=== PATIENT | male | born 1995 | race Caucasian/White ===

== ENCOUNTER 2023-09-30 20:42 | Inpatient (IN) | payer OTHER ==
[~2023-09-30] VITALS: Ht 177.8 cm; Wt 65.4 kg
[~2023-09-30 20:42] MED LIST: CEFTIN 250250 MG/TAB PO; FLOMAX 0.40.4 MG/CAP PO; NO HOME MEDICATIONS; PERCOCET 325 MG1 TA2 PO
[2023-09-30] MEDS ORDERED: LORazepam 2 MG/ML 1 ML VIAL IV ONE ×2 (21:00→21:30)
[2023-09-30 21:05] LABS: BASO % 0.2 % (0.0-2.0); EOS % 0.1 % (0.0-4.0); GRAN # 19.8 K/mm3 (1.4-6.5); GRAN % 89.5 % (42.2-75.2); HEMATOCRIT 45.9 % (42.0-52.0); HEMOGLOBIN 15.8 g/dl (13.5-18.0); LYMPH # 0.8 K/mm3 (1.2-3.4); LYMPH % 3.4 % (20.0-51.0); MEAN CELL VOLUME 91 fl (80.0-100.0); MEAN CORPUSCULAR HEMOGLOBIN 32 pg (27-31); MEAN CORPUSCULAR HGB CONC 34 g/dl (33.0-37.0); MEAN PLATELET VOLUME 8.6 fl (7.4-10.4); MONO # 1.4 K/mm3 (0.1-0.6); MONO % 6.3 % (1.7-9.3); PLATELET COUNT 286 K/mm3 (130-400); RED BLOOD COUNT 5.02 M/mm3 (4.20-5.60); REDCELL DISTRIBUTION WIDTH-CV 12.5 % (11.5-14.5)
[2023-09-30] MEDS ORDERED: NS 1,000 ML IV ONE ×2 (21:28→22:30)
[2023-09-30 21:30] LABS: ALANINE AMINOTRANSFERASE 69 U/L (0-55); ALBUMIN 4.8 g/dL (3.5-5.0); ALCOHOL(ethanol),MEDICAL < 10 mg/dL (0-10); ALKALINE PHOSPHATASE 85 U/L (40-150); ANION GAP 19 mmol/L (7-16); AST,SGOT 54 U/L (5-34); BILIRUBIN,TOTAL 0.6 mg/dL (0.2-1.2); BLOOD UREA NITROGEN 29 mg/dL (9-21); CALCIUM 10.1 mg/dL (8.4-10.2); CHLORIDE 106 mEq/L (98-107); GLUCOSE 105 mg/dL (70-99); POTASSIUM 4.8 mEq/L (3.5-4.5); SODIUM 143 mEq/L (136-145); TOTAL PROTEIN 8.3 g/dl (6.2-8.1)
[2023-09-30 21:57] LABS: TROPONIN-I < 0.010 ng/mL (0.00-0.033)
[2023-09-30 22:18] LABS: COLLECTION METHOD CLEAN CATCH
[2023-09-30 22:28] LABS: URINE APPEARANCE TURBID (CLEAR/HAZY); URINE BLOOD 2+ (NEGATIVE); URINE COLOR YELLOW (YELLOW); URINE GLUCOSE NEGATIVE (NEGATIVE); URINE KETONE 1+ (NEGATIVE); URINE NITRATE NEGATIVE (NEGATIVE); URINE PROTEIN(semi-quant) 2+ (NEGATIVE); URINE UROBILINOGEN 0.2 E.U/dL (0.2-1.0)
[2023-09-30 22:34] LABS: TRICYCLIC ANTIDEPRESS URINE NEGATIVE (NEGATIVE)
[2023-09-30 23:00] LABS: MUCOUS PRESENT (NOT PRESENT); SQUAMOUS EPITHELIAL 0-2 /hpf (0-10); URINE BACTERIA NONE SEEN /hpf (NONE SEEN); URINE RBC 0-2 /hpf (0-2); URINE WBC 0-2 /hpf (0-2)
[2023-09-30] MEDS ORDERED: Ketamine 50 MG/5 ML SYRINGE IV ONE (23:15)
[2023-10-01] VITALS (683 sets, daily range): BP systolic 95–122; BP diastolic 59–76; PULSE 64–84; TEMP 97.7–99.1; O2SAT 84–100
[2023-10-01] MEDS ORDERED: Ketamine 50 MG/5 ML SYRINGE IV ONE (00:04)
[2023-10-01] MEDS ORDERED: cefTRIAXone 2 G in Water For Injection,Sterile 20 ML IV SCH (00:30)
[2023-10-01 00:51] LABS: GLUCOSE,CSF 76 mg/dL (40-70); TOTAL PROTEIN,CSF 38 mg/dL (15-45)
[2023-10-01] MEDS ORDERED: Vancomycin 1.5 GM,Special Dose/Pharmacy Prepared 1.5 GM in NS 250 ML IV ONE (01:00)
[2023-10-01] MEDS ORDERED: ACYCLOVIR IV SCH (02:00)
[2023-10-01] MEDS ORDERED: NS IV SCH (02:00)
[2023-10-01] MEDS ORDERED: Acetaminophen 500 MG TAB PO PRN (02:15)
[2023-10-01] MEDS ORDERED: Ondansetron 4 MG/2 ML VIAL IV PRN (02:15)
[2023-10-01 02:25] LABS: CSF APPEARANCE CLEAR; CSF COLOR COLORLESS; CSF POLYMORPHONUCLEAR 100 % (0-6); CSF RBC 30 /mm3 (0-0)
[2023-10-01 02:26] LABS: CSF MONONUCLEAR 0 % (70-100)
--- NOTE | 2023-10-01 02:52 | NUR ---
Vancomycin Initial Dosing Pharmacy Note Ordering provider: Miguelina Beyer R., MD Indication/duration: Possible meningitis x 3 days Relevant comorbidities: None LABS: WBC = 22.2 Recommendation: If vanco continued past 3 days, will draw trough and follow level. Loading dose: 1.5 grams Maintenance dose: 1.25 grams every 24 hours Trough goal: 20-25 ug/mL
--- NOTE | 2023-10-01 03:15 | NUR ---
Received report from RITU Vizcaino at 0055. Pt arrived on the unit at 0145. Pt was able to wake up for a short peroid of time to move himself from the ED bed to the other bed. Pt oriented based off three questions that he answered, pt got his name, and town correctly, but also seems to have some altered mental status that appears throughout. He does not remember what happened today and does not know why he is here. Pt stopped answering questions after that. Pt was able to follow some commands, but then there are times when he will not follow commands. Pt falls asleep pretty fast. Pt's vitals were stable upon arrival. Pt's belongings are just his clothes. Pt is currently resting in bed with bed alarms on. Will continue with pt care.
[2023-10-01] MEDS ORDERED: NS 1,000 ML IV SCH (05:15)
--- NOTE | 2023-10-01 06:32 | NUR ---
Pt slept most of the night upon arriving on the unit. Pt started to wake up more around 0545. Pt was alert and oriented x4 and able to answer questions and follow commands. Was able to go to CT for ABD and pelvis around 0600. Pt is now on IVF and resting in bed with call light within reach and bed alarms on. Will give report to day shift nurse.
--- NOTE | 2023-10-01 08:30 | NUR ---
Patient slightly sleepy, but awakens easily and answers orientation questions appropriately. Mom at bedside with patient. Call light left within reach. Will continue to monitor.
--- NOTE | 2023-10-01 10:06 | NUR ---
hall worker called patient's room phone due to being in droplet isolation. Pt's mother, Jo Ann [phone] answered phone to discuss. Jo Ann reports pt lives with her in [place]. Pt does not have a PCP she states because he "just doesn't get sick." SW advised if she would like a PCP list as there is usually a follow up needed after a hospital stay. Mother states she will call [facility], where she is seen to get patient in. Mother states pt does not have any medications, but would obtain them from [facility] with difficulties. She reports his [facility] insurance does not cover prescriptions. SW advised talking with a PCP in the future for coupons/samples and downloading the [facility] cassie to match prices and lower the cost. Jo Ann reports she is familiar with this and will help do this. Pt is independent with ADLS and uses no DME. He does not have a DPOA-HC. Discharge Plan; home
[2023-10-01 11:16] LABS: HEMATOCRIT 37.4 % (42.0-52.0); MEAN CELL VOLUME 92 fl (80.0-100.0); MEAN CORPUSCULAR HEMOGLOBIN 32 pg (27-31); MEAN CORPUSCULAR HGB CONC 35 g/dl (33.0-37.0); PLATELET COUNT 214 K/mm3 (130-400); RED BLOOD COUNT 4.07 M/mm3 (4.20-5.60); REDCELL DISTRIBUTION WIDTH-CV 12.5 % (11.5-14.5)
[2023-10-01 11:21] LABS: HEMOGLOBIN 13.2 g/dl (13.5-18.0)
[2023-10-01 11:31] LABS: CALCIUM 8.3 mg/dL (8.4-10.2); CREATININE, serum 2.79 mg/dL (0.72-1.25); POTASSIUM 3.9 mEq/L (3.5-4.5)
[2023-10-01 11:47] LABS: BAND 5 % (0-10); LYMPHOCYTE 16 % (20.0-51.0); NEUTROPHILS 74 % (42.0-75.2); PLATELET ESTIMATE NORMAL (NORMAL)
--- NOTE | 2023-10-01 11:50 | NUR ---
Blood glucose on labs 64. Patient alert and oriented. Patient received and ate lunch shortly after receiving lab results.
--- NOTE | 2023-10-01 16:02 | NUR ---
Reported latest labs to hospitalist. Will consult nephrology and obtain CK lab.
[2023-10-01] MEDS ORDERED: Vancomycin 1.25 GM,Special Dose/Pharmacy Prepared 1.25 GM in NS 250 ML IV SCH (17:00)
--- NOTE | 2023-10-01 17:20 | NUR ---
PT UP TO FLOOR AT THIS TIME A/O X4, STEADY GAIT, AND VITALS STABLE. PT TOLERATING DEIT WELL, NO SKIN INSSUES, COMPLAINING OF GENERAL SORNESS IN ALL EXTREMITIS. NO NEEDS AT THIS TIME. FAMILY AT BEDSIDE, WILL CONTINUE TO MONITOR.
--- NOTE | 2023-10-01 22:45 | NUR ---
patient lying in bed, alert and oriented x4. denies chest pain, reports shortness of breath only with exertion. IV in LAC is patent, site is clean dry and intact with NS running at 100 ml/hr, dressing changed at 2200. left lower back bandaid clean dry and intact, small scattered bruising on extremities noted. pt has no further needs, questions, or concerns at this time. fall precautions in place, call light within reach. will continue to monitor.
[2023-10-02] VITALS (20 sets, daily range): BP systolic 106–140; BP diastolic 60–93; PULSE 56–73; TEMP 98–98.9
[2023-10-02 07:16] LABS: BASO % 0.5 % (0.0-2.0); EOS % 0.2 % (0.0-4.0); GRAN % 67.8 % (42.2-75.2); HEMOGLOBIN 12.6 g/dl (13.5-18.0); LYMPH # 1.7 K/mm3 (1.2-3.4); LYMPH % 19.2 % (20.0-51.0); MEAN CELL VOLUME 92 fl (80.0-100.0); MEAN CORPUSCULAR HEMOGLOBIN 32 pg (27-31); MEAN CORPUSCULAR HGB CONC 34 g/dl (33.0-37.0); MEAN PLATELET VOLUME 9.3 fl (7.4-10.4); MONO # 1.1 K/mm3 (0.1-0.6); MONO % 12.1 % (1.7-9.3); PLATELET COUNT 195 K/mm3 (130-400); RED BLOOD COUNT 3.99 M/mm3 (4.20-5.60); REDCELL DISTRIBUTION WIDTH-CV 12.3 % (11.5-14.5)
[2023-10-02 07:17] LABS: HEMATOCRIT 36.6 % (42.0-52.0)
[2023-10-02 07:32] LABS: CALCIUM 8.4 mg/dL (8.4-10.2); CREATININE, serum 2.17 mg/dL (0.72-1.25); POTASSIUM 3.6 mEq/L (3.5-4.5)
[2023-10-02] MEDS ORDERED: 1/2 NS 1,000 ML IV SCH (09:15)
[2023-10-02 10:07] LABS: INR 1.1 (0.8-3.0); PROTHROMBIN TIME 11.5 SECONDS (9.7-12.8)
[2023-10-02] MEDS ORDERED: Lidocaine PF 2% (20 MG/ML) 5 ML VIAL ONE (10:29)
[2023-10-02 10:39] LABS: CREATININE, serum 2.07 mg/dL (0.72-1.25); POTASSIUM 3.9 mEq/L (3.5-4.5)
--- NOTE | 2023-10-02 11:25 | NUR ---
Pt back to [facility] - bedside handoff performed with RITU Oleary - pt AOx4, vitals initiated and stable - call light in reach. Pt denies questions or concerns
--- NOTE | 2023-10-02 11:27 | NUR ---
Patient alert and oriented x4, shift assessment complete this morning. Patient denies pain. Maintained NPO status for ALESSIA and MRI of brain. Returned to floor from ALESSIA 1125, VSS. Stable on room air, tolerating sips of water. Patient resting in bed with call light in reach, all needs met at this time.
--- NOTE | 2023-10-02 13:59 | NUR ---
Initial visit; Sherman, a nice young man with a great smile talked with Research & Analytics Manager and was receptive to having Research & Analytics Manager keep him in her prayers. His mom was also present and very nice as well. Research & Analytics Manager offered them "God's blessings."
--- NOTE | 2023-10-02 17:46 | NUR ---
Patient remains stable. Called to complain of IV leaking to left AC. IV discontinued. This nurse tried x2 to left forearm/AC with no success. RITU Ba attempted x2 with no success. shift supervisor got a patent IV site after third attempt to right forearm. IV antibiotic infusing per orders at this time. Patient's mom at bedside. Call light within reach, all needs met at this time.
--- NOTE | 2023-10-02 20:26 | NUR ---
PATIENT SITTING UP IN BED TALKING ON CELLPHONE. ALERT AND ORIENTED. SHIFT ASSESSMENT COMPLETE. NS INFUSING PER MAR. TELEMETRY ON. PATIENT STATES PAIN IS GENERALIZED MUSCLE PAIN. DENIES PAIN MEDICATION. DENIES NEEDS OR CONCERNS AT THIS TIME. CALL LIGHT WITHIN REACH. WILL MONITOR
[2023-10-03] VITALS (9 sets, daily range): BP systolic 129–153; BP diastolic 83–99; PULSE 50–61; TEMP 97.5–99.3
--- NOTE | 2023-10-03 02:49 | NUR ---
PATIENT RESTING WITH EYES CLOSED UPON ARRIVAL OF THIS NURSE. THIS NURSE ADMINISTERED ACYCLOVIR IV PER JUL. PATIENT DENIES PAIN OR NEEDS AT THIS TIME.
[2023-10-03 08:02] LABS: BASO % 0.5 % (0.0-2.0); EOS # 0.1 K/mm3 (0.0-0.7); EOS % 0.6 % (0.0-4.0); GRAN # 5.6 K/mm3 (1.4-6.5); GRAN % 68.4 % (42.2-75.2); HEMATOCRIT 37.8 % (42.0-52.0); HEMOGLOBIN 12.9 g/dl (13.5-18.0); LYMPH # 1.4 K/mm3 (1.2-3.4); LYMPH % 17.7 % (20.0-51.0); MEAN CELL VOLUME 92 fl (80.0-100.0); MEAN CORPUSCULAR HEMOGLOBIN 31 pg (27-31); MEAN CORPUSCULAR HGB CONC 34 g/dl (33.0-37.0); MEAN PLATELET VOLUME 9.3 fl (7.4-10.4); MONO % 12.4 % (1.7-9.3); PLATELET COUNT 182 K/mm3 (130-400); RED BLOOD COUNT 4.13 M/mm3 (4.20-5.60)
[2023-10-03 08:12] LABS: CALCIUM 8.6 mg/dL (8.4-10.2); CREATININE, serum 1.46 mg/dL (0.72-1.25); POTASSIUM 3.6 mEq/L (3.5-4.5)
--- NOTE | 2023-10-03 09:55 | NUR ---
PATIENT ALERT AND ORIENTED TO SELF AND PLACE BUT UNABLE TO TELL ME DATE. PATIENT DENIES PAIN AT THIS TIME. FLUIDS RUNNING PER EMAR. PATIENT REPORTS HAVING DIFFICULTY REMEMBERING THINGS BEFORE AND AFTER SEIZURE. MOTHER AT BEDSIDE. PATIENT MOTHER CONCERN ABOUT PATIENT MEMORY LOSS. PATIENT LAYING IN BED RESTING REPORTS FEELING BETTER BUT STILL WEAK.CALL LIGHT WITHIN REACH. BED AT LOWEST POSITION.
[2023-10-03 13:12] LABS: HSV 2 DNA PCR QUAL Negative (Negative)
--- NOTE | 2023-10-03 16:25 | NUR ---
PATIENT DISCHARGE INSTRUCTIONS GIVEN. PATIENT DENIED ANY QUESTIONS. IV AND TELE REMOVED. PATIENT ESCORTED OUT OF HOSPITAL BY THIS NURSE.
== END 2023-10-03 16:30 | disposition home or self-care (01) | DRG 100 ==
LOC: COL.ER 20:42 → MEDICAL 10-01 00:05 → ICU 10-01 00:05 → MEDICAL 10-01 17:19
PROVIDERS: Emergency Medicine; Internal Medicine; Nurse Practitioner Primary Care; ADMIT Internal Medicine
PROC: 009U3ZX Drainage of Spinal Canal, Percutaneous Approach, Diagnostic (ICD-10-PCS; principal; 2023-10-01)
DX: G40.909 Epilepsy, unspecified, not intractable, without status epilepticus (principal); G93.41 Metabolic encephalopathy; N17.9 Acute kidney failure, unspecified; E87.20 Acidosis, unspecified; E87.5 Hyperkalemia; Z88.0 Allergy status to penicillin; Z86.16 Personal history of COVID-19; Z87.442 Personal history of urinary calculi
CPT/HCPCS: A4314; J0133; J0696; J1650; J2060; J2704; J3370; J7030; J7050; Q3014